=== PATIENT | female | born 1975 | race Native Hawaiian/Other Pacific Islander ===

== ENCOUNTER 2017-05-04 09:44 | Outpatient (CLI) | payer OTHER | END 2017-05-04 19:21 | disposition home or self-care (01) | LOC: MAMMO 09:44 | DX: Z12.31 Encounter for screening mammogram for malignant neoplasm of breast (principal) ==

== ENCOUNTER 2017-12-09 13:24 | Outpatient (CLI) | payer OTHER | END 2017-12-09 22:20 | disposition home or self-care (01) | LOC: MAMMO 13:24 | DX: R92.8 Other abnormal and inconclusive findings on diagnostic imaging of breast (principal) ==